=== PATIENT | female | born 1990 | race African-American/Black ===

== ENCOUNTER 2018-09-10 18:08 | Emergency (ER) | payer OTHER, MEDICAID ==
[~2018-09-10] VITALS: Ht 162.6 cm; Wt 75.7 kg
[2018-09-10 18:10] VITALS: BP 110/73; Ht 162.6 cm; Wt 75.7 kg
== END 2018-09-10 19:07 | disposition home or self-care (01) ==
LOC: ED 18:08
DX: H04.321 Acute dacryocystitis of right lacrimal passage (principal)